=== PATIENT | female | born 1975 | race African-American/Black ===

== ENCOUNTER 2018-05-28 21:23 | Emergency (ER) | payer OTHER ==
--- NOTE | 2018-05-28 21:27 | PDOC ---
History of Present Illness - General History Source: Patient Exam Limitations: No Limitations - History of Present Illness Initial Comments: 05/28/18 22:48 The patient is a 43-year-old female with no reported past medical history presents to the emergency department s/p a fall. The patient reports around 4: 00 pm today, she was ambulating down the stairs when she missed a step and fell down the stairs. The patient states she is unable to recall if she twisted her ankle. The patient states she was able to ambulate following the fall. The patient reports later in the day she was unable to bear weight on her left ankle. Denies numbness, tingling, weakness or loss of sensation The patient reports taking Advil, without relief. <Ana Rosa Murphy - Last Filed: 05/28/18 22:48> <Feliciano Georges - Last Filed: 05/29/18 06:59> - General Chief Complaint: Injury Stated Complaint: LEFT ANKLE INJURY Time Seen by Provider: 05/28/18 21:27 Past History <Ana Rosa Murphy - Last Filed: 05/28/18 22:48> <Feliciano Georges - Last Filed: 05/29/18 06:59> - Past Medical History Allergies/Adverse Reactions: Allergies Allergy/AdvReac Type Severity Reaction Status Date / Time No Known Allergies Allergy Verified 05/28/18 21:25 Home Medications: Ambulatory Orders Cetirizine HCl [Zyrtec -] 10 mg PO DAILY 05/28/18 Ibuprofen [Advil -] 400 mg PO ASDIR 05/28/18 Venlafaxine HCl [Effexor -] 300 mg PO DAILY 05/28/18 Review of Systems - Review of Systems Able to Perform ROS?: Yes Comments:: 05/28/18 22:48 CONSTITUTIONAL: Denies Fever, Chills, Diaphoresis, Generalized Weakness, Malaise , Loss of Appetite CARDIOVASCULAR: Denies chest pain or Lightheadedness. RESPIRATORY: Denies Cough, Shortness of Breath, SOB with Exertion, Orthopnea, Wheezing, Stridor, Hemoptysis GASTROINTESTINAL: Denies Abdominal pain, Abdominal Distension, Nausea, Vomiting , Diarrhea. MUSCULOSKELETAL: +Left leg pain. No reported: Myalgia, Arthralgia, Joint Swelling, Back pain, Neck Pain SKIN: No reported: Rash, Itching, Pallor <Ana Rosa Murphy - Last Filed: 05/28/18 22:48> *Physical Exam - Vital Signs Last Vital Signs Temp Pulse Resp BP Pulse Ox 97.6 F 79 18 109/67 99 05/28/18 21:23 05/28/18 21:23 05/28/18 21:23 05/28/18 21:23 05/28/18 21:23 - Physical Exam Comments: 05/28/18 22:49 GENERAL: The patient is awake, alert, and fully oriented, Nontoxic - in no acute distress. HEAD: Normocephalic, atraumatic. ENT: Normal voice, Moist mucous membranes. NECK: Normal range of motion, supple LUNGS: Breath sounds equal, clear to auscultation bilaterally. No wheezes, no rhonchi, no rales. HEART: Regular rate and rhythm, without murmur, rub or gallop. EXTREMITIES: +tender over the lateral 5th metatarsal. Normal range of motion, no edema. No cyanosis. No erythema. NEUROLOGICAL: No facial assymetry, Normal speech, SKIN: Warm, Dry, normal turgor. <Ana Rosa Murphy - Last Filed: 05/28/18 22:48> Moderate Sedation - Procedure Monitoring Vital Signs: Procedure Monitoring Vital Signs Temperature 97.6 F 05/28/18 21:23 Pulse Rate 79 05/28/18 21:23 Respiratory Rate 18 05/28/18 21:23 Blood Pressure 109/67 05/28/18 21:23 O2 Sat by Pulse Oximetry (%) 99 05/28/18 21:23 <Ana Rosa Murphy - Last Filed: 05/28/18 22:48> Medical Decision Making - Medical Decision Making 05/29/18 06:58 plain films--no fx, as read by me, referred to radiology ankle contusion/ sprain nsaids RICE <Feliciano Georges - Last Filed: 05/29/18 06:59> *DC/Admit/Observation/Transfer - Attestations Scribe Attestion: 05/28/18 22:49 Documentation prepared by Ana Rosa Murphy, acting as medical receptionist assistant for Feliciano Georges MD. <Ana Rosa Murphy - Last Filed: 05/28/18 22:48> <Feliciano Georges - Last Filed: 05/29/18 06:59> Diagnosis at time of Disposition: Foot contusion Qualifiers: Encounter type: initial encounter Laterality: left Qualified Code(s): S90.32XA - Contusion of left foot, initial encounter - Discharge Dispostion Disposition: HOME Condition at time of disposition: Stable - Referrals Referrals: Costa Mejía MD [Primary Care Provider] - - Patient Instructions Printed Discharge Instructions: How to Use Crutches Additional Instructions: Advil (ibuprofen) 600 or 800 mg every 8 hours on a full stomach Ice it periodically for the next day or so. Bear weight as tolerated - Post Discharge Activity Forms/Work/School Notes: Back to Work
[2018-05-28 21:35] VITALS: BP 109/67; PULSE 79; TEMP 97.6; BMI 28.3
== END 2018-05-28 22:48 | disposition home or self-care (01) ==
LOC: SUPCPDRO 21:23 → FER 21:23
DX: S90.32XA Contusion of left foot, initial encounter (principal); W10.9XXA Fall (on) (from) unspecified stairs and steps, initial encounter; Y93.89 Activity, other specified; Y92.89 Other specified places as the place of occurrence of the external cause
CPT/HCPCS: 73630-TC-LT; 99282-25

== ENCOUNTER 2019-07-18 06:26 | Inpatient (IN) | payer OTHER ==
[2019-07-13 13:14] VITALS: BMI 39.4
[2019-07-18] MEDS ORDERED: SODIUM CHLORIDE 0.9% P/F 10 ML VIAL IJ ONE (06:47)
[2019-07-18] MEDS ORDERED: SUCCINYLCHOLINE CHLORIDE 200 MG/10 ML SYRINGE ONE (06:47)
[2019-07-18] MEDS ORDERED: fentaNYL CITRATE 250 MCG/5 ML VIAL ONE (06:47)
[2019-07-18] MEDS ORDERED: PROPOFOL 20 ML ONE ×3 (06:47→08:23)
[2019-07-18] MEDS ORDERED: MIDAZOLAM HCL 2 MG/2 ML SINGLE DOSE VIAL ONE ×3 (06:47→06:59)
[2019-07-18] MEDS ORDERED: ceFAZolin SODIUM 1 GM VIAL ONE (06:47)
[2019-07-18] MEDS ORDERED: DEXAMETHASONE SOD PHOSPHATE 4 MG/1 ML VIAL ONE (06:47)
[2019-07-18] MEDS ORDERED: ROCURONIUM BROMIDE 50 MG/5 ML SYRINGE ONE (06:47)
[2019-07-18] MEDS ORDERED: EPHEDRINE SULFATE/0.9% NACL/PF 50 MG/10 ML SYRINGE NR ONE (06:51)
[2019-07-18] MEDS ORDERED: BUPIVACAINE HCL/PF 0.5% (5 MG/ML) 30 ML VIAL IJ ONE (06:59)
--- NOTE | 2019-07-18 07:34 | HP ---
Admitting History and Physical - Admission Chief Complaint: morbid obesity History Source: Patient Limitations to Obtaining History: No Limitations - Past Medical History ...LMP: 06/29/19 ...: No - Past Surgical History Past Surgical History: Yes: - Smoking History Smoking history: Never smoked Have you smoked in the past 12 months: No - Alcohol/Substance Use Hx Alcohol Use: No - Social History ADL: Independent Home Medications - Allergies Allergies/Adverse Reactions: Allergies Allergy/AdvReac Type Severity Reaction Status Date / Time seasonal Allergy Intermediate CONGESTION Uncoded 07/18/19 07:00 - Home Medications Home Medications: Ambulatory Orders Venlafaxine HCl [Effexor -] 300 mg PO DAILY 05/28/18 Loratadine [Claritin -] 10 mg PO DAILY 07/13/19 Family Medical History Family History: Unremarkable Review of Systems - Review of Systems Constitutional: denies: Chills, Fever Neck: reports: No Symptoms Cardiovascular: reports: No Symptoms Respiratory: reports: No Symptoms Gastrointestinal: reports: No Symptoms Neurological: reports: No Symptoms Pain Intensity: 0 Physical Examination Vital Signs: Vital Signs Temperature 98.4 F 07/18/19 07:01 Pulse Rate 96 H 07/18/19 07:01 Respiratory Rate 16 07/18/19 07:01 Blood Pressure 103/74 07/18/19 07:01 O2 Sat by Pulse Oximetry (%) 98 07/18/19 07:10 Constitutional: Yes: Calm Neck: Yes: WNL Cardiovascular: Yes: WNL Respiratory: Yes: WNL Gastrointestinal: Yes: Soft, Abdomen, Obese Neurological: Yes: Alert, Oriented Problem List - Problems (1) Morbid obesity due to excess calories Code(s): E66.01 - MORBID (SEVERE) OBESITY DUE TO EXCESS CALORIES Assessment/Plan Laparoscopic possible open vertical sleeve gastrectomy, possible liver biopsy, upper endoscopy
[2019-07-18] MEDS ORDERED: BUPIVACAINE HCL 0.25% 125 MG/50 ML VIAL ONE (07:50)
[2019-07-18] MEDS ORDERED: GLYCOPYRROLATE 0.2 MG/1 ML VIAL ONE (08:42)
[2019-07-18] MEDS ORDERED: NEOSTIGMINE METHYLSULFATE 0.5 MG/ML - 10 ML MDV ONE (08:42)
[2019-07-18] MEDS ORDERED: LIDOCAINE HCL 2% JELLY (5 ML/TUBE) ONE (08:43)
--- NOTE | 2019-07-18 09:06 | OPR ---
Operative Note Operative Date: 07/18/19 Pre-Operative Diagnosis: Morbid obesity Operation: 1. Diagnostic laparoscopy. 2. Laparoscopic vertical sleeve gastrectomy. 3. Laparoscopic wedge liver biopsy. Post-Operative Diagnosis: Same as Pre-op (as well as hepatomegaly) Surgeon: Chang Rivera Senior Buyer: Dontae Ramirez Anesthesia: General Specimens Removed: Greater curvature of stomach. Liver biopsy. Estimated Blood Loss (mls): 30 Drains & Tubes with Location: 36 Fr Bougie Operative Report Dictated: Yes
[2019-07-18] MEDS ORDERED: HYDROmorphone HCL CARPU-JECT 1 MG/1 ML DISP.SYRIN IVPUSH PRN ×2 (09:17)
[2019-07-18] MEDS ORDERED: ONDANSETRON 4 MG/2 ML VIAL IVPUSH PRN (09:17)
[2019-07-18] MEDS ORDERED: LACTATED RINGERS SOLUTION 1,000 ML IV SCH (09:30)
[2019-07-18] MEDS ORDERED: METOCLOPRAMIDE HCL INJECTION 10 MG/2 ML VIAL ONE (09:42)
[2019-07-18] MEDS ORDERED: ACETAMINOPHEN INJECTION 100 ML IVPB ONE (09:42)
[2019-07-18] MEDS: METOCLOPRAMIDE HCL INJECTION 10 MG/2 ML VIAL IVPUSH SCH ×4 (09:52→21:24)
[2019-07-18] MEDS: ACETAMINOPHEN 1000 MG/100 ML VIAL (NON FORMULARY) IVPB SCH ×4 (09:54→21:24)
[2019-07-18] MEDS ORDERED: HYDROmorphone HCL 0.5 MG/0.5 ML SYRINGE ONE (10:01)
[2019-07-18] MEDS ORDERED: FAMOTIDINE 20 MG/50 ML IVPB 20 MG/50 ML MG IVPB ONE (10:01)
[2019-07-18 10:09] LABS: HEMATOCRIT 35.2 % (32.4-45.2); HEMOGLOBIN 11.5 GM/dl (10.7-15.3); MCH 27.3 pg (25.7-33.7); MCHC 32.6 g/dl (32.0-36.0); MEAN CELL VOLUME 83.8 fl (80-96); MEAN PLT VOLUME 7.7 fl (7.5-11.1); PLATELET COUNT 398 K/MM3 (134-434); RBC 4.21 M/mm3 (3.60-5.2); RDW 13.7 % (11.6-15.6); WHITE BLOOD COUNT 5.2 K/mm3 (4.0-10.8)
[2019-07-18 10:20] LABS: ALBUMIN 3.3 g/dl (3.4-5.0); BILIRUBIN,TOTAL 0.5 mg/dl (0.2-1); CALCIUM 8.3 mg/dl (8.5-10); CREATININE 0.6 mg/dl (0.55-1.3); POTASSIUM 3.4 mmol/L (3.5-5.1); TOT PROT 6.3 g/dl (6.4-8.2)
--- NOTE | 2019-07-18 10:24 | SPEC ---
DATE OF OPERATION: 07/18/2019 SURGEON: Chang Rivera MD SHEET METAL WORKER APPRENTICE: Dontae Ramirez MD PREOPERATIVE DIAGNOSES: 1. Morbid obesity. POSTOPERATIVE DIAGNOSES: 1. Morbid obesity. 2. Hepatomegaly. PROCEDURE: 1. Diagnostic laparoscopy. 2. Laparoscopic vertical sleeve gastrectomy. 3. Laparoscopic wedge liver biopsy. ESTIMATED BLOOD LOSS: 30 mL. DRAINS: None. ANESTHESIA: GET. BOUGIE SIZE: 36-Greek. SPECIMENS: 1. Greater curvature of the stomach. 2. Liver biopsy. REASON FOR PROCEDURE: This is a 44-year-old female who presents for weight loss options. After describing different options, she decided to proceed with laparoscopic, possible open, vertical sleeve gastrectomy, possible liver biopsy, upper endoscopy. The patient was seen by the respective subspecialties and cleared for surgery. The risks and benefits of the procedure were explained. These included bleeding, infection, hernia, CA, DVT, PE, injury to surrounding structures including the liver, colon, bowel, spleen, esophagus, vessel injury, nerve injury, weight regain, gastric leak, staple line leak, sleeve leak, obstruction, vitamin deficiency, hair loss and as some of the possible complications. The patient understood and signed informed consent. DESCRIPTION OF PROCEDURE: The patient was placed supine on the operating room table. The patient underwent general endotracheal intubation. The arms were brought out at 90 degrees and secured. A footboard was placed and the legs were secured laterally with padding. The abdomen was prepped and draped in the usual sterile fashion. A timeout was performed. An incision was made in the left upper quadrant and a Veress needle inserted. Pneumoperitoneum was established. Subsequently, the Veress needle was removed and a 5-mm trocar was placed under direct visualization with the laparoscope. The laparoscopic camera was then inserted and inspection of the abdominal cavity was performed. An incision was then made in the supraumbilical area and a 15-mm trocar was placed under direct visualization. A 5-mm trocar was then placed in the right upper quadrant and a 5-mm trocar was placed below the left subcostal margin. A stab wound was made in the subxiphoid area and a Jessica clamp inserted and removed to dilate the tract. A Sahil liver retractor was inserted. The post was secured at the bedside by the nursing staff. The patient was placed in steep reverse Trendelenburg position and the Sahil liver retractor was used to secure the liver towards the anterior abdominal wall. The pylorus was identified and 6 cm proximal to it, the lesser sac was entered using the LigaSure device. All lateral attachments to the greater curvature of the stomach, including the short gastric vessels, were ligated using the LigaSure device toward the gastrosplenic and gastrophrenic ligaments. Once this was done in its entirety, it was confirmed that all tubes within the nasal or oropharyngeal cavity, including a temperature probe were removed by Anesthesia. The bougie was then inserted by Anesthesia. Transection of the stomach was then begun staying adjacent to the bougie but away from the angularis. Transection of the stomach was performed near the portion of the stomach where the lesser sac was entered. Two laparoscopic Endo-DONALDO black fara were used at this location. Laparoscopic Endo DONALDO purple staple loads were then used for the remainder of the transection until the greater curvature of the stomach was fully transected. This was done staying close to the bougie. Care was taken to stay away from the angle of His cephalad. The staple line was then inspected. Hemostasis was identified. A leak test was then performed. It was clamped distally to the staple line. Irrigation solution was placed in the left upper quadrant and air was insufflated by Anesthesia into the sleeve. No leaks were identified. No obstruction was identified. This was done through the entirety of the staple line. The stomach was suctioned and the bougie removed fully intact under direct visualization. At this point, the irrigation solution was suctioned and again, hemostasis was noted. A wedge liver biopsy was then performed. The left lobe of the liver was identified. A portion of the edge of the left lobe of the liver was grasped. Using electrocautery, a wedge of the left liver was excised. The specimen was removed and sent off the field. Hemostasis of the wedge liver biopsy site was attained and noted using electrocautery. The 15-mm supraumbilical trocar was then removed and the greater curvature specimen removed from the site using a sponge stick brar. A Cristino-Alicia device was then used to close the fascia with a 0 Vicryl suture at the site. Again, hemostasis was noted. The Sahil liver retractor was then removed under direct visualization. Pneumoperitoneum was desufflated. Hemostasis was noted at all incision sites and Marcaine was injected at all incision sites. A 3-0 Vicryl suture was used to close the deep subcutaneous tissue at the 15-mm incision site. All incision sites were closed using 4-0 Biosyn. Sterile dressings were applied. The patient tolerated the procedure well and was transferred to the recovery room in stable condition. Freddie MICHAUD/[id number]
[2019-07-18] MEDS: SODIUM CHLORIDE 1,000 ML IV SCH (11:52)
[2019-07-18] MEDS: ONDANSETRON 4 MG/2 ML VIAL IVPUSH SCH ×4 (11:52→21:25)
[2019-07-18] MEDS: FAMOTIDINE 20 MG/50 ML IVPB 20 MG/50 ML MG IVPB SCH ×2 (11:53→21:24)
[2019-07-18] MEDS: ENOXAPARIN NA (PORCINE) 40 MG/0.4 ML DISP.SYRIN SQ SCH (21:24)
[2019-07-18] MEDS: HYDROmorphone HCL CARPU-JECT 1 MG/1 ML DISP.SYRIN IVPB PRN (22:39)
[2019-07-19] MEDS: ONDANSETRON 4 MG/2 ML VIAL IVPUSH SCH ×4 (01:00→14:27)
[2019-07-19] MEDS: METOCLOPRAMIDE HCL INJECTION 10 MG/2 ML VIAL IVPUSH SCH ×2 (03:51→09:12)
[2019-07-19] MEDS: ACETAMINOPHEN 1000 MG/100 ML VIAL (NON FORMULARY) IVPB SCH (03:51)
[2019-07-19] MEDS: HYDROmorphone HCL CARPU-JECT 1 MG/1 ML DISP.SYRIN IVPB PRN ×2 (05:10→09:13)
--- NOTE | 2019-07-19 07:35 | DS ---
Physical Exam: SUBJECTIVE: Patient seen and examined OBJECTIVE: Vital Signs Temperature 98.0 F 07/19/19 05:00 Pulse Rate 98 H 07/19/19 05:00 Respiratory Rate 18 07/19/19 05:00 Blood Pressure 156/78 07/19/19 05:00 O2 Sat by Pulse Oximetry (%) 100 07/19/19 05:00 PHYSICAL EXAM GENERAL: The patient is awake, alert, and fully oriented, in no acute distress. HEAD: Normal with no signs of trauma. EYES: PERRL, extraocular movements intact, sclera anicteric, conjunctiva clear. NECK: Trachea midline, full range of motion, supple. LUNGS: Breath sounds equal, clear to auscultation bilaterally, no wheezes, no crackles, no accessory muscle use. HEART: Regular rate and rhythm ABDOMEN: Soft, mild diffuse tenderness, nondistended, normoactive bowel sounds, no guarding, no rebound, no hepatosplenomegaly, no masses. EXTREMITIES: warm, well-perfused, no edema. NEUROLOGICAL: Cranial nerves II through XII grossly intact. Normal speech, gait not observed. PSYCH: Normal mood, normal affect. SKIN: Warm, dry, normal turgor, no rashes or lesions noted. LABS CBC,CMP WBC 5.2 K/mm3 (4.0-10.8) 07/18/19 09:30 RBC 4.21 M/mm3 (3.60-5.2) 07/18/19 09:30 Hgb 11.5 GM/dl (10.7-15.3) 07/18/19 09:30 Hct 35.2 % (32.4-45.2) 07/18/19 09:30 MCV 83.8 fl (80-96) 07/18/19 09:30 MCH 27.3 pg (25.7-33.7) 07/18/19 09:30 MCHC 32.6 g/dl (32.0-36.0) 07/18/19 09:30 RDW 13.7 % (11.6-15.6) 07/18/19 09:30 Plt Count 398 K/MM3 (134-434) 07/18/19 09:30 MPV 7.7 fl (7.5-11.1) 07/18/19 09:30 Sodium 136 mmol/L (136-145) 07/18/19 09:30 Potassium 3.4 mmol/L (3.5-5.1) L 07/18/19 09:30 Chloride 108 mmol/L (98-107) H 07/18/19 09:30 Carbon Dioxide 22 mmol/L (21-32) 07/18/19 09:30 Anion Gap 6 MMOL/L (8-16) L 07/18/19 09:30 BUN 9.0 mg/dl (7-18) 07/18/19 09:30 Creatinine 0.6 mg/dl (0.55-1.3) 07/18/19 09:30 Est GFR (CKD-EPI)AfAm 127.58 07/18/19 09:30 Est GFR (CKD-EPI)NonAf 110.08 07/18/19 09:30 Random Glucose 150 mg/dl (74-106) H 07/18/19 09:30 Calcium 8.3 mg/dl (8.5-10) L 07/18/19 09:30 Total Bilirubin 0.5 mg/dl (0.2-1) 07/18/19 09:30 AST 39 U/L (15-37) H 07/18/19 09:30 ALT 35 U/L (13-61) 07/18/19 09:30 Alkaline Phosphatase 66 U/L (45-117) 07/18/19 09:30 Total Protein 6.3 g/dl (6.4-8.2) L 07/18/19 09:30 Albumin 3.3 g/dl (3.4-5.0) L 07/18/19 09:30 HOSPITAL COURSE: Date of Admission:07/18/19 Date of Discharge: 07/19/19 HOSPITAL COURSE: The patient was admitted to the Med-Surg Unit after elective bariatric surgery. Now, s/p laparoscopic vertical sleeve gastrectomy. The day of surgery, the patient ambulated the hallways with assistance. The patient was monitored with remote tele/continuous pulse ox. Narcotic and non-narcotic pain management control was achieved with oral and IV pain control. Upper GI series was obtained the following morning and no leak, extravastion or gastric outlet obstruction. Started on a Bariatric Stage 1 diet and tolerated well. Genet-operative IV ABX were administered in addition to GI prophylaxis. DVT prophylaxis was achieved with SCDs and early ambulation. The discharge instructions and an oral pain management plan were reviewed with the patient. All questions answered. Above plan discussed with Dr. Rivera and agreed. Minutes to complete discharge: 20 Visit type - Case Type Case Type: Scheduled - Emergency Emergency Visit: No - New patient This patient is new to me today: Yes Date on this admission: 07/19/19 - Critical Care Critical Care patient: No
[2019-07-19 07:54] LABS: HEMATOCRIT 37.3 % (32.4-45.2); HEMOGLOBIN 12.2 GM/dl (10.7-15.3); MCH 27.4 pg (25.7-33.7); MCHC 32.7 g/dl (32.0-36.0); MEAN CELL VOLUME 83.6 fl (80-96); MEAN PLT VOLUME 7.6 fl (7.5-11.1); PLATELET COUNT 400 K/MM3 (134-434); RBC 4.46 M/mm3 (3.60-5.2); RDW 13.5 % (11.6-15.6); WHITE BLOOD COUNT 7.2 K/mm3 (4.0-10.8)
[2019-07-19 08:07] LABS: ALBUMIN 3.7 g/dl (3.4-5.0); BILIRUBIN,TOTAL 0.3 mg/dl (0.2-1); CALCIUM 8.8 mg/dl (8.5-10); CREATININE 0.6 mg/dl (0.55-1.3); POTASSIUM 3.8 mmol/L (3.5-5.1); TOT PROT 7.1 g/dl (6.4-8.2)
[2019-07-19] MEDS: ENOXAPARIN NA (PORCINE) 40 MG/0.4 ML DISP.SYRIN SQ SCH (09:13)
[2019-07-19] MEDS: SODIUM CHLORIDE 1,000 ML IV SCH (09:13)
[2019-07-19] MEDS: FAMOTIDINE 20 MG/50 ML IVPB 20 MG/50 ML MG IVPB SCH (09:13)
[2019-07-19] MEDS ORDERED: oxyCODONE HCL 5 MG TABLET PO PRN (10:24)
--- NOTE | 2019-07-19 10:26 | PN ---
Progress Note (short form) - Note Progress Note: POD 1 No nausea reported Pain controlled Vital Signs Period Temp Pulse Resp BP Sys/Cisse Pulse Ox Last 24 Hr 97.3 F-99.2 F 80-103 - 116-156/65-78 96-100 CBC,CMP WBC 7.2 K/mm3 (4.0-10.8) 07/19/19 06:40 RBC 4.46 M/mm3 (3.60-5.2) 07/19/19 06:40 Hgb 12.2 GM/dl (10.7-15.3) 07/19/19 06:40 Hct 37.3 % (32.4-45.2) 07/19/19 06:40 MCV 83.6 fl (80-96) 07/19/19 06:40 MCH 27.4 pg (25.7-33.7) 07/19/19 06:40 MCHC 32.7 g/dl (32.0-36.0) 07/19/19 06:40 RDW 13.5 % (11.6-15.6) 07/19/19 06:40 Plt Count 400 K/MM3 (134-434) 07/19/19 06:40 MPV 7.6 fl (7.5-11.1) 07/19/19 06:40 Sodium 139 mmol/L (136-145) 07/19/19 06:40 Potassium 3.8 mmol/L (3.5-5.1) 07/19/19 06:40 Chloride 108 mmol/L (98-107) H 07/19/19 06:40 Carbon Dioxide 24 mmol/L (21-32) 07/19/19 06:40 Anion Gap 7 MMOL/L (8-16) L 07/19/19 06:40 BUN 8.0 mg/dl (7-18) 07/19/19 06:40 Creatinine 0.6 mg/dl (0.55-1.3) 07/19/19 06:40 Est GFR (CKD-EPI)AfAm 127.58 07/19/19 06:40 Est GFR (CKD-EPI)NonAf 110.08 07/19/19 06:40 Random Glucose 111 mg/dl (74-106) H 07/19/19 06:40 Calcium 8.8 mg/dl (8.5-10) 07/19/19 06:40 Total Bilirubin 0.3 mg/dl (0.2-1) 07/19/19 06:40 AST 46 U/L (15-37) H 07/19/19 06:40 ALT 42 U/L (13-61) 07/19/19 06:40 Alkaline Phosphatase 71 U/L (45-117) 07/19/19 06:40 Total Protein 7.1 g/dl (6.4-8.2) 07/19/19 06:40 Albumin 3.7 g/dl (3.4-5.0) 07/19/19 06:40 UGI: no leak/obstryction Clears Discharge home Problem List - Problems (1) Morbid obesity due to excess calories Code(s): E66.01 - MORBID (SEVERE) OBESITY DUE TO EXCESS CALORIES
[2019-07-19] MEDS ORDERED: SODIUM CHLORIDE 1,000 ML IV SCH (10:30)
--- NOTE | 2019-07-19 11:23 | PN ---
Progress Note (short form) - Note Progress Note: 44F POD1 s/p lap gastric sleeve resection under GA-ETT doing well. Pt states that pain is well controlled and reports no anesthetic complications. AVSS. Continue current regimen.
[2019-07-19 13:56] VITALS: BP 137/66; PULSE 102; TEMP 98.5
--- NOTE | 2019-07-21 10:36 | PATH ---
Surgical Pathology Report Patient Name: LOBITO MORTENSEN Med. Rec. #: [id number] /Age/Gender: 1975 (Age: 44) / F Account: [id number] Location: [facility] MED-SURG Taken: 07/18/2019 Received: 07/18/2019 Reported: 07/21/2019 Physicians: Chang Rivera M.D. Specimen(s) Received A: GREATER CURVATURE STOMACH B: LIVER BIOPSY Clinical History Morbid obesity Final Diagnosis A. GREATER CURVATURE STOMACH, LAPAROSCOPIC VERTICAL SLEEVE GASTRECTOMY: SEGMENT OF STOMACH WITH CHRONIC GASTRITIS. IMMUNOSTAIN FOR H. PYLORI IS NEGATIVE. NEGATIVE FOR INTESTINAL METAPLASIA. B. LIVER, BIOPSY: NO HISTOLOGIC EVIDENCE OF STEATOSIS OR HEPATITIS. NO INCREASE IN FIBROSIS (TRICHROME STAIN) OR IRON (IRON STAIN) DEPOSITION. Electronically Signed Edna Wells M.D. Gross Description A. Received in formalin, labeled "greater curvature of stomach," is an 84 gram, 18.0 x 3.0 x 2.3 cm. portion of stomach with a stapled margin of resection. The serosa is evans-bowen with minimal attached fat. The mucosa is evans-pink with normal folds. No mucosal masses are identified. Traveling Secretary sections are submitted in one cassette. B. Received in formalin labeled "liver biopsy," is a 1.8 x 1.0 x 0.4 cm evans, irregular portion of soft tissue, consistent with a liver biopsy. The specimen is bisected and entirely submitted in one cassette. /07/19/2019 saudi07/19/2019
== END 2019-07-19 15:01 | disposition home or self-care (01) | DRG 403 ==
LOC: FM/S 06:26
PROVIDERS: ADMIT Surgery; ATTEND Surgery
PROC: 0FB24ZX Excision of Left Lobe Liver, Percutaneous Endoscopic Approach, Diagnostic (ICD-10-PCS; 2019-07-18)
PROC: 0DB64Z3 Excision of Stomach, Percutaneous Endoscopic Approach, Vertical (ICD-10-PCS; principal; 2019-07-18 08:22)
DX: E66.01 Morbid (severe) obesity due to excess calories (principal); R16.0 Hepatomegaly, not elsewhere classified; Z68.38 Body mass index [BMI] 38.0-38.9, adult
CPT/HCPCS: 36415; 74240-TC-FY; 80053; 81025; 85027; 94760; J0131; J7030

== ENCOUNTER 2021-12-24 02:48 | Emergency (ER) | payer OTHER ==
[2021-12-24] MEDS ORDERED: AMOX TR/POT CLAV 875MG/125MG TABLETS (FP) PO ONE (03:03)
[2021-12-24 03:04] VITALS: BP 118/85; PULSE 85; RESP 17; TEMP 98.5; BMI 27.4
[2021-12-24] MEDS ORDERED: AMOX TR/POT CLAV 875MG/125MG TABLETS (FP) ONE (03:04)
[2021-12-24] MEDS ORDERED: KETOROLAC TROMETHAMINE 30 MG/1 ML VIAL ONE (03:44)
[2021-12-24] MEDS ORDERED: KETOROLAC TROMETHAMINE 30 MG/1 ML VIAL IM ONE (03:44)
== END 2021-12-24 03:57 | disposition home or self-care (01) ==
LOC: FER 02:48
PROC: 3E0233Z Introduction of Anti-inflammatory into Muscle, Percutaneous Approach (ICD-10-PCS; principal; 2021-12-24)
DX: H65.192 Other acute nonsuppurative otitis media, left ear (principal)
CPT/HCPCS: 99284-25